=== PATIENT | male | born 1950 | race Two or more races ===

== ENCOUNTER 2019-09-27 16:58 | Emergency (ER) | payer OTHER ==
[~2019-09-27] VITALS: Ht 165.1 cm; Wt 62.0 kg
[2019-09-27] MEDS ORDERED: HYDR12.54 PO (17:21)
[2019-09-27 18:09] LABS: CHLORIDE 107 mEq/L (98-107)
[2019-09-27 18:10] LABS: BASOPHILS % 0.7 % (0.0-2.0); EOSINOPHILS % 2.8 % (0.0-5.0); HEMOGLOBIN. 15.4 g/dL (14.0-18.0); LYMPHOCYTES % 39.6 % (20.0-50.0); MEAN CORPUSCULAR HEMOGLOBIN 31.9 pg (28.0-32.0); MEAN CORPUSCULAR VOLUME 89.2 fL (80.0-94.0); MEAN PLATELET VOLUME 8.4 fl (7.4-10.4); MONOCYTES % 9.7 % (2.0-8.0); NEUTROPHILS % 47.2 % (40.0-76.0); PLATELET 158 x1000/uL (130-400); RED BLOOD CELL COUNT 4.82 mill/uL (4.7-6.1); RED CELL DISTRIBUTION WIDTH 12.9 % (11.6-14.6)
[2019-09-27 20:26] VITALS: BP 124/71
== END 2019-09-27 20:27 | disposition home or self-care (01) ==
LOC: ER 16:58
DX: R55 Syncope and collapse (principal); R73.9 Hyperglycemia, unspecified; E87.6 Hypokalemia; R00.1 Bradycardia, unspecified; I10 Essential (primary) hypertension
CPT/HCPCS: 36415; 71045; 80053; 83880; 84484; 85025; 93005; 99285